=== PATIENT | female | born 1940 | race Caucasian/White ===

== ENCOUNTER 2020-02-04 10:31 | Emergency (ER) | payer MEDICARE, OTHER ==
--- NOTE | 2020-02-04 11:10 | ER Document Report ---
ED General - General Stated Complaint: WEAKNESS INCONTINENCE Time Seen by Provider: 02/04/20 10:53 Notes: 79-year-old female with stroke chronic speech difficulties generalized weakness on hospice care at home DNR/DNI presents having been found on the ground covered in stool. Her daughter who takes care of her dropped her off at a family member's house to get a break, and she was found on the ground generally weak. There is no unilateral weakness no numbness or tingling - Related Data Allergies/Adverse Reactions: No Known Allergies Allergy (Unverified 02/04/20 12:00) Past Medical History - General Information source: Patient - Social History Smoking Status: Former Smoker Family History: None Review of Systems - Review of Systems Notes: REVIEW OF SYSTEMS Dementia PHYSICAL EXAMINATION General: No acute distress, well-nourished Head: Atraumatic, normocephalic ENT: Mouth normal, oropharynx moist, no exudates or tonsillar enlargement Eyes: Conjunctiva normal, pupils equal, lids normal Neck: No JVD, supple, no guarding CVS: Normal rate, regular rhythm, no murmurs Resp: No resp distress, equal and normal breath sounds bilaterally GI: Nondistended, soft, no tenderness to palpation, no rebound or guarding Ext: No deformities, no edema, normal range of motion in upper and lower ext Back: No CVA or midline TTP Skin: No rash, warm Lymphatic: No lymphadeopathy noted Neuro: Bilateral wasted extremities mild aphasia follows commands strongly with all 4 extremities without focal neurologic deficits CS 15. Physical Exam - Vital signs Vitals: Resp BP Pulse Ox 19 100/74 99 02/04/20 11:31 02/04/20 11:31 02/04/20 11:31 Course - Re-evaluation Re-evalutation: 02/04/20 11:13 Fall versus seizure versus syncope in a patient who has had multiple strokes but has no acute neurologic deficits baseline vital signs. Could be dehydration medicationrelated We will do EKG head CT and labsdaughter does not want aggressive care and if all these are normal daughter agrees to take patient home No chest pain or signs of acute coronary syndrome 02/04/20 18:51 Potassium high normal otherwise labs unremarkable CT shows chronic changes and EKG is negative The patient feels well on reassessment is able to raise both her arms can transfer and the daughter would like to take her home which is reasonable Follow-up primary care this week I have discussed with the patient there likely diagnosis, aftercare plan, follow-up plans and my usual and customary return precautions. They verbalized understanding of this. - Vital Signs Vital signs: Temp Pulse Resp BP Pulse Ox 97.2 F 22 H 115/62 99 02/04/20 13:47 02/04/20 13:47 02/04/20 13:47 02/04/20 13:47 - Laboratory Result Diagrams: 02/04/20 12:35 02/04/20 12:35 Laboratory results interpreted by me: 02/04/20 12:35 Potassium 5.3 H Chloride 111 H BUN 29 H Est GFR (MDRD) Non-Af 58 L - Diagnostic Test Radiology reviewed: Image reviewed, Reports reviewed - EKG Interpretation by Me EKG shows normal: Sinus rhythm Rate: Normal Rhythm: NSR - No prolongation of intervals No ST or T wave changes concerning for ischemia Discharge - Discharge Clinical Impression: Generalized weakness Fall Qualifiers: Encounter type: initial encounter Qualified Code(s): W19.XXXA - Unspecified fall, initial encounter Condition: Good Disposition: HOME, SELF-CARE Instructions: Weakness ([facility]) Additional Instructions: You were evaluated today for seizure syncope and generalized weakness Labs imaging and EKG were all normal. The fall could have been from dizziness dehydration or generalized weakness. Please follow-up with the patient's primary care within 5 days.
--- NOTE | 2020-02-04 11:29 | RADIOLOGY REPORT (SQ) ---
EXAM DESCRIPTION: CT HEAD WITHOUT IMAGES COMPLETED DATE/TIME: 02/04/2020 11:11 am REASON FOR STUDY: fall COMPARISON: None. TECHNIQUE: Axial images acquired through the brain without intravenous contrast. Images reviewed wi th bone, brain and subdural windows. Additional sagittal and coronal reconstructions were generated. Images stored on PACS. All CT scanners at this facility use dose modulation, iterative reconstruction, and/or weight based d osing when appropriate to reduce radiation dose to as low as reasonably achievable (ALARA). [facility]: Dose Right [facility]: CareDose [facility]: Dose Right [facility]: Teradose 4D [facility]: Regalii RADIATION DOSE: CT Rad equipment meets quality standard of care and radiation dose reduction techniq ues were employed. CTDIvol: 53.2 mGy. DLP: 991 mGy-cm.mGy. LIMITATIONS: None. FINDINGS: VENTRICLES: Prominent. CEREBRUM: No masses. No hemorrhage. No midline shift. Areas of low density in the white matter mos t likely due to chronic micro-vascular ischemic change. No evidence for acute infarction. Multiple old infarcts including left temporal frontal frontal and right parietooccipital. CEREBELLUM: No masses. No hemorrhage. No alteration of density. No evidence for acute infarction. EXTRAAXIAL SPACES: Age-related involutional change. No fluid collections. No masses. ORBITS AND GLOBE: No intra- or extraconal masses. Normal contour of globe without masses. CALVARIUM: No fracture. PARANASAL SINUSES: No fluid or mucosal thickening. SOFT TISSUES: No mass or hematoma. OTHER: No other significant finding. IMPRESSION: Marked atrophy and chronic microvascular ischemia. Multiple old infarcts. No acute fin dings. EVIDENCE OF ACUTE STROKE: NO. TECHNICAL DOCUMENTATION: JOB ID: [id number] Quality ID # [id number]: Final reports with documentation of one or more dose reduction techniques (e.g., Au tomated exposure control, adjustment of the mA and/or kV according to patient size, use of iterative reconstruction technique) 2010 [employer]- All Rights Reserved Reading location - IP/workstation name: [email or web address]
--- NOTE | 2020-02-04 11:47 | EKG REPORT ---
SEVERITY:- BORDERLINE ECG - SINUS RHYTHM NONSPECIFIC ST-T CHANGES : Confirmed by: Dante Coombs MD 04-Feb-2020 11:46:46
[2020-02-04 12:44] LABS: HEMATOCRIT 38.8 % (36.0-47.0); MEAN CORPUSCULAR HEMOGLOBIN 30.9 pg (27.0-33.4); MEAN CORPUSCULAR HGB CONC 33.6 g/dL (32.0-36.0); MEAN CORPUSCULAR VOLUME 92 fl (80-97); PLATELET COUNT 174 10^3/uL (150-450); RED BLOOD COUNT 4.21 10^6/uL (3.72-5.28); RED CELL DISTRIBUTION WIDTH 12.5 % (11.5-14.0); WHITE BLOOD COUNT 9.7 10^3/uL (4.0-10.5)
[2020-02-04 13:07] LABS: ANION GAP 6 (5-19); BLOOD UREA NITROGEN 29 mg/dL (7-20); CALCIUM 9.9 mg/dL (8.4-10.2); CARBON DIOXIDE 27 mmol/L (22-30); CHLORIDE 111 mmol/L (98-107); GLUCOSE 102 mg/dL (75-110); POTASSIUM 5.3 mmol/L (3.6-5.0)
[2020-02-04 14:07] VITALS: BP 115/62
== END 2020-02-04 13:50 | disposition home or self-care (01) ==
LOC: ER 10:31
DX: R53.1 Weakness (principal); Z51.5 Encounter for palliative care; Z66 Do not resuscitate; W18.30XA Fall on same level, unspecified, initial encounter; Y92.009 Unspecified place in unspecified non-institutional (private) residence as the place of occurrence of the external cause
CPT/HCPCS: 36415; 70450; 80048; 85027; 93005; 93010; 99285